=== PATIENT | male | born 1970 | race Caucasian/White ===

== ENCOUNTER 2023-11-09 15:37 | Outpatient (CLI) | payer OTHER | END 2023-11-09 15:38 | disposition home or self-care (01) | LOC: CSHCT 15:37 | PROVIDERS: ATTEND Specialist | DX: M47.26 Other spondylosis with radiculopathy, lumbar region (principal); M47.27 Other spondylosis with radiculopathy, lumbosacral region; Z98.890 Other specified postprocedural states | CPT/HCPCS: 72131 ==